=== PATIENT | female | born 1985 | race African-American/Black ===

== ENCOUNTER 2017-02-23 18:12 | Emergency (ER) | payer OTHER ==
[~2017-02-23 18:12] MED LIST: MOTRIN600 MG PO; TAMIFLU75 M1 PO; VICODIN 5/500 T1 TAB PO; ZYRTEC10 M2 PO
== END 2017-02-23 20:25 | disposition home or self-care (01) ==
LOC: CFTX 18:12 → CED 18:12 → CFTX 19:35
DX: L02.214 Cutaneous abscess of groin (principal); I10 Essential (primary) hypertension
CPT/HCPCS: 10060; 87070; 87077; 87186; 87205; 99283

== ENCOUNTER 2017-06-01 18:14 | Emergency (ER) | payer OTHER ==
[~2017-06-01] VITALS: Ht 157.5 cm; Wt 69.4 kg
== END 2017-06-01 20:25 | disposition left against medical advice (07) ==
LOC: CED 18:14
DX: Z53.21 Procedure and treatment not carried out due to patient leaving prior to being seen by health care provider (principal)

== ENCOUNTER 2017-06-10 12:19 | Emergency (ER) | payer OTHER ==
[~2017-06-10] VITALS: Ht 157.5 cm; Wt 68.0 kg
--- NOTE | ~2017-06-10 | CR63 ---
[facility] A Service of [facility] & [facility] RADIOLOGY TEXT RESULTS PATIENT: ELLEN ROBERTSON LOCATION: CFTX : 89 UNIT #: [id number] AGE: [address]: Emmie Monsivais APRN SEX: F ORDER DR: [id number] [facility] [address] [place], [place] [address] [id number] MR#: [id number] Acc #: [id number] NAME: ELLEN ROBERTSON : 1985 SEX: F STUDY DATE/TIME: 06/10/2017 16:51 UNIT: [facility] ROOM: STUDY DESCRIPTION: CR Chest 2 View Attending Physician: Emmie Monsivais A.P.R.N. Ordering Physician: Ed Pee Phan M.D. Primary Care Physician: [facility] MEDICAL IMAGING REPORT This report is preliminary unless electronic signature is present EXAM Two-view chest, 06/10/2017. HISTORY 31-year-old female with chest pain and shortness of air for 1 week, worse over the last 2 days. COMPARISON Chest, 07/01/2015 FINDINGS Two views of the chest demonstrate clear lungs. No pleural effusion or pneumothorax. Heart size and mediastinum are normal. Pulmonary vasculature normal. IMPRESSION No acute cardiopulmonary findings. Dictated by... Len Patton M.D. THIS IS AN ELECTRONICALLY VERIFIED REPORT Len Patton M.D. at 06/11/2017 10:50 AM CAESAR/lorie TD: 06/11/2017 09:44 JOB #: [id number] MEDICAL IMAGING REPORT Page 1 of 1 COPY
--- NOTE | ~2017-06-10 | EKG ---
PATIENT: ELLEN ROBERTSON UNIT #: [id number] Ventricular Rate: 82 BPM Atrial Rate: 82 BPM P-R Interval: 170 ms QRS Duration: 88 ms Q-T Interval: 390 ms QTC Calculation(Bezet): 455 ms P [place]: 50 degrees Calculated R [place]: 39 degrees Calculated T [place]: 47 degrees Diagnosis Line: Normal sinus rhythm Diagnosis Line: Nonspecific T wave abnormality Diagnosis Line: Abnormal ECG Diagnosis Line: When compared with ECG of 01-JUL-2015 10:16, Diagnosis Line: No significant change was found Diagnosis Line: Confirmed by JUAN GARG MD ([id number]) on Diagnosis Line: 06/11/2017 12:35:29 PM INTERPRETING MD: BRITANY DURAND
[2017-06-10 14:29] LABS: INFLUENZA A NEG (NEG); INFLUENZA B NEG (NEG)
[2017-06-10 14:41] LABS: URINE SOURCE CLEAN CATCH
[2017-06-10 14:55] LABS: URINE APPEARANCE CLOUDY; URINE BILIRUBIN NEG (NEG); URINE BLOOD NEG (NEG); URINE COLOR DK YELLOW; URINE GLUCOSE NEG (NEG); URINE KETONE NEG (NEG); URINE LEUKOCYTE ESTERASE TRACE (NEG); URINE NITRATE NEG (NEG); URINE PROTEIN TRACE (NEG); URINE SPECIFIC GRAVITY 1.023 (1.003-1.035)
[2017-06-10 14:59] LABS: CULTURE INDICATED? YES; URINE BACTERIA AUWI 1+ (NEGATIVE); URINE SQUAMOUS EPITHELIAL CELL FEW /[HPF]
[2017-06-10 16:07] LABS: POC - TROPONIN <0.05 ng/mL (<=0.05)
[2017-06-10 16:08] LABS: BASOPHIL% 0.4 % (0-2.5); EOSINOPHIL# 0.1 X10e3 (0-0.7); EOSINOPHIL% 1.5 % (0.0-7.0); HEMATOCRIT 35.5 % (35.0-45.0); HEMOGLOBIN 11.6 gm/dL (12.0-16.0); LYMPHOCYTE# 1.7 X10e3 (1.0-3.5); LYMPHOCYTE% 37.5 % (17.0-45.0); MEAN CELL VOLUME 88.3 FL (83-96); MEAN CORPUSCULAR HEMOGLOBIN 28.9 PG (28-34); MEAN CORPUSCULAR HGB CONC 32.8 g/dL (30-36); MEAN PLATELET VOLUME 7.6 FL (6.5-11.5); MONOCYTE# 0.5 X10e3 (0-1.0); NEUTROPHIL# 2.3 X10e3 (1.5-7.1); NEUTROPHIL% 50.6 % (40-75); PLATELET COUNT 308 X10e3 (140-420); RED BLOOD COUNT 4.02 X10e (3.90-5.30); RED CELL DISTRIBUTION WIDTH 16.6 % (11.0-15.5); WHITE BLOOD COUNT 4.5 X10e3 (4.0-10.5)
[2017-06-10 16:10] LABS: DIFF IND NO
[2017-06-10 16:46] LABS: ALBUMIN SERUM 3.9 g/dL (3.5-5.0); BILIRUBIN, DIRECT 0.1 mg/dL (0.0-0.2); BILIRUBIN,INDIRECT 0.1 mg/dL (0.0-0.9); BILIRUBIN,TOTAL 0.2 mg/dL (0.2-2.0); CALCIUM SERUM 8.9 mg/dL (8.4-10.2); CREATININE SERUM 0.6 mg/dL (0.6-1.4); GLOM FILT RATE Estimated 142.8 mL/min (>60); POTASSIUM 3.8 mmol/L (3.5-5.1); PROTEIN TOTAL SERUM 7.8 g/dL (6.0-8.3)
[2017-06-10 17:39] LABS: POC - CKMB <1.0 ng/mL (0.0-7.9); POC - TROPONIN <0.05 ng/mL (<=0.05)
== END 2017-06-10 18:13 | disposition home or self-care (01) ==
LOC: CFTX 12:19 → CED 12:19 → CFTX 14:12
PROVIDERS: Nurse Practitioner
DX: J06.9 Acute upper respiratory infection, unspecified (principal); R03.0 Elevated blood-pressure reading, without diagnosis of hypertension; R07.89 Other chest pain; Z88.1 Allergy status to other antibiotic agents
CPT/HCPCS: 36415; 71020; 80048; 80076; 81003; 82553; 84484; 84703; 85025; 87086; 87651; 87804; 93005; 99285